=== PATIENT | male | born 1990 | race American Indian/Alaskan Native ===

== ENCOUNTER 2020-05-31 15:16 | Emergency (ER) | payer SELFPAY ==
[2020-05-31 16:31] VITALS: BP 134/94
--- NOTE | 2020-05-31 17:59 | Emergency Department Report ---
<TAMY MCADAMS - Last Filed: 05/31/20 17:54> ED Male HPI - General Chief complaint: Urogenital-Male Stated complaint: LUMP IN TESTICLE Time Seen by Provider: 05/31/20 17:49 Source: patient Mode of arrival: Ambulatory Limitations: No Limitations - History of Present Illness Initial comments: 21-year-old F [place] male presents emergency department complaining of a 2- month or so history of a testicular mass to the right testicle and some unknown etiology. Reports no hematuria no dysuria no fever, chills, sweats no possibility of an STD and the mass is not very painful. He discovered a mass while he was incarcerated and had an ultrasound done but was not told of the results of the ultrasound as he was released from assisted before obtaining them. Presents today seeking further evaluation guidance as to what to do with his testicular mass. He reports having no current past medical history or family history of any cancers issues Location: right testicle Radiation: none Consistency: constant Improves with: none Worsens with: none denies: swelling, urinary retention, blood in urine, nausea/vomiting, incontinence - Related Data Allergies Allergy/AdvReac Type Severity Reaction Status Date / Time ant bites Allergy Swelling Uncoded 05/31/20 16:28 ED Review of Systems Comment: All other systems reviewed and negative ED Past Medical Hx - Past Medical History Previous Medical History?: No - Surgical History Past Surgical History?: No - Social History Smoking Status: Current Every Day Smoker Substance Use Type: None ED Physical Exam - General Limitations: No Limitations General appearance: alert, in no apparent distress - Head Head exam: Present: atraumatic, normocephalic - Eye Eye exam: Present: normal appearance, PERRL, EOMI Pupils: Present: normal accommodation - ENT ENT exam: Present: mucous membranes moist - Neck Neck exam: Present: normal inspection - Respiratory Respiratory exam: Present: normal lung sounds bilaterally. Absent: respiratory distress - Cardiovascular Cardiovascular Exam: Present: regular rate, normal rhythm. Absent: systolic murmur, diastolic murmur, rubs, gallop - GI/Abdominal GI/Abdominal exam: Present: soft, normal bowel sounds - Rectal Rectal exam: Present: deferred - exam: Present: scrotal swelling (Testicular mass seen on the right testicle proximal aspect flexion conjunction no tenderness no discharge normal testicular lie), circumcision. Absent: vertical testicular lie - Extremities Exam Extremities exam: Present: normal inspection - Back Exam Back exam: Present: normal inspection - Neurological Exam Neurological exam: Present: alert, oriented X3 - Psychiatric Psychiatric exam: Present: normal affect, normal mood - Skin Skin exam: Present: warm, dry, intact, normal color. Absent: rash ED Disposition Clinical Impression: Testicular mass Disposition: TO HOME OR SELFCARE Is pt being admited?: No Does the pt Need Aspirin: No Condition: Stable Instructions: Testicular Self-examination (ED), Testicle Pain (ED) Referrals: [facility] [Provider Group] - 3-5 Days [facility] [Provider Group] - 3-5 Days Forms: AMA Form Print Language: MALAY <LIZ LIN - Last Filed: 05/31/20 21:38> ED Review of Systems ROS: Stated complaint: LUMP IN TESTICLE Other details as noted in HPI ED Course Vital Signs 05/31/20 16:28 Temperature 98.4 F Pulse Rate 62 Respiratory 18 Rate Blood Pressure 134/94 O2 Sat by Pulse 100 Oximetry ED Medical Decision Making - Radiology Data Radiology results: report reviewed, image reviewed Findings [facility] [address] [place] [address] Ultrasound Report Signed Patient: DIONI ALBERTO MR#: [id number] : 1990 Acct:[id number] Age/Sex: 29 / M ADM Date: 05/31/20 Loc: ED Attending Dr: Ordering Physician: DIOGO JEAN BAPTISTE Date of Service: 05/31/20 Procedure(s): US testicular doppler comp Accession Number(s): [id number] cc: DIOGO JEAN BAPTISTE ULTRASOUND SCROTUM INDICATION / CLINICAL INFORMATION: testicular mass to right. COMPARISON: None available. FINDINGS -- RIGHT TESTIS: Size = 3.8 x 2.6 x 3.8 cm. - Appearance: No significant abnormality. - Cyst or Mass: None. - Color Doppler Flow: No significant abnormality. EPIDIDYMIS: There are 2 simple cysts noted within the area of the epididymal head, both measuring approximately 7 mm in size. HYDROCELE: None. VARICOCELE: None demonstrated. FINDINGS -- LEFT TESTIS: Size = 3.8 x 2.6 x 3.8 cm. - Appearance: No significant abnormality. - Cyst or Mass: None. - Color Doppler Flow: No significant abnormality. EPIDIDYMIS: No significant abnormality. HYDROCELE: None. VARICOCELE: None demonstrated. ADDITIONAL FINDINGS: None. IMPRESSION: 1. There are 2 simple epididymal cysts noted of the epididymal head on the right both measuring approximately 7 mm in size. 2. Normal color flow noted to bilateral testicles. Signer Name: French Gilmore MD Signed: 05/31/2020 9:24 PM Workstation Name: [id number] Transcribed By: Dictated By: FRENCH GILMORE Electronically Authenticated By: FRENCH GILMORE Signed Date/Time: 05/31/202123 DD/ 19 TD/TT: - Medical Decision Making I assumed care of the patient from Mr. Christopher Kong PA-C at shift change at 1900 hrs. Briefly the patient had presented to the ED with right testicular mass for over 2 months with no pain. Lab test results were reviewed and are all nonactionable. Testicular ultrasound showed normal color flow bilaterally on the testicles and 2 simple epididymal cysts noted of the epididymal head on the right both measuring approximately 7 mm in size. Patient was discharged home and advised to follow-up with his primary care physician as needed. Patient was advised return to the ED immediately if symptoms get worse. - Differential Diagnosis Epididymitis; Orchitis; Testicular neoplasm; Torsion Critical care attestation.: If time is entered above; I have spent that time in minutes in the direct care of this critically ill patient, excluding procedure time. ED Disposition Time of Disposition: 21:36
--- NOTE | 2020-05-31 21:28 | Ultrasound Report ---
ULTRASOUND SCROTUM INDICATION / CLINICAL INFORMATION: testicular mass to right. COMPARISON: None available. FINDINGS -- RIGHT TESTIS: Size = 3.8 x 2.6 x 3.8 cm. - Appearance: No significant abnormality. - Cyst or Mass: None. - Color Doppler Flow: No significant abnormality. EPIDIDYMIS: There are 2 simple cysts noted within the area of the epididymal head, both measuring ap proximately 7 mm in size. HYDROCELE: None. VARICOCELE: None demonstrated. FINDINGS -- LEFT TESTIS: Size = 3.8 x 2.6 x 3.8 cm. - Appearance: No significant abnormality. - Cyst or Mass: None. - Color Doppler Flow: No significant abnormality. EPIDIDYMIS: No significant abnormality. HYDROCELE: None. VARICOCELE: None demonstrated. ADDITIONAL FINDINGS: None. IMPRESSION: 1. There are 2 simple epididymal cysts noted of the epididymal head on the right both measuring appro ximately 7 mm in size. 2. Normal color flow noted to bilateral testicles. Signer Name: French Tobin MD Signed: 05/31/2020 9:24 PM Workstation Name: [id number]
== END 2020-05-31 21:43 | disposition home or self-care (01) ==
LOC: ED 15:16
DX: N50.89 Other specified disorders of the male genital organs (principal); F17.200 Nicotine dependence, unspecified, uncomplicated; Z88.8 Allergy status to other drugs, medicaments and biological substances
CPT/HCPCS: 93975; 99283

== ENCOUNTER 2021-06-07 04:30 | Emergency (ER) | payer SELFPAY ==
[2021-06-07 04:44] VITALS: BP 147/94
--- NOTE | 2021-06-07 05:00 | Emergency Department Report ---
ED General Adult HPI - General Chief complaint: Skin/Abscess/Foreign Body Stated complaint: ABCESS ON LT SIDE CHEEK Source: patient Mode of arrival: Ambulatory Limitations: No Limitations - History of Present Illness Initial comments: Patient is a 30-year-old -[place] male with no past medical history presents to the ED with complaint of acute onset persistent painful swelling left cheek maculopapular rash for the last 2 days. Patient states that he noticed an ingrown hair on his left cheek 2 days ago and tried to pull it out and subsequently developed the swelling and pain. Patient denies fever, chills, nausea, vomiting, dizziness, syncope, no numbness and tingling of the face. MD Complaint: swollen painful rash on left cheek -: Sudden, days(s) (2) Location: face (left cheek) Radiation: non-radiation Severity scale (0 -10): 6 Quality: aching, sharp Consistency: constant Improves with: none Worsens with: none Associated Symptoms: denies other symptoms, rash (Swollen, painful maculopapular rash on left cheek). denies: confusion, chest pain, cough, diaphoresis, fever/chills, headaches, loss of appetite, malaise, nausea/vomiting, seizure, shortness of breath, syncope, weakness Treatments Prior to Arrival: none - Related Data Previous Rx's Medication Instructions Recorded Last Taken Type Ibuprofen [Motrin] 800 mg PO Q8HR PRN #30 tablet 06/07/21 Unknown Rx Sulfamethoxazole/Trimethoprim 1 each PO Q12H #20 tablet 06/07/21 Unknown Rx [Bactrim DS TAB] Allergies Allergy/AdvReac Type Severity Reaction Status Date / Time ant bites Allergy Swelling Uncoded 06/07/21 04:44 ED Review of Systems ROS: Stated complaint: ABCESS ON LT SIDE CHEEK Other details as noted in HPI Constitutional: denies: chills, fever Eyes: denies: eye pain, eye discharge, vision change ENT: other (swollen painful maculopapular rash on left cheek). denies: ear pain, throat pain Respiratory: denies: cough, shortness of breath, wheezing Cardiovascular: denies: chest pain, palpitations Endocrine: no symptoms reported Gastrointestinal: denies: abdominal pain, nausea, diarrhea Genitourinary: denies: urgency, dysuria Musculoskeletal: denies: back pain, joint swelling, arthralgia Skin: rash (Swollen, painful maculopapular rash on left cheek). denies: lesions Neurological: denies: headache, weakness, paresthesias Psychiatric: denies: anxiety, depression Hematological/Lymphatic: denies: easy bleeding, easy bruising ED Past Medical Hx - Past Medical History Previous Medical History?: No - Surgical History Past Surgical History?: No - Social History Smoking Status: Never Smoker - Medications Home Medications: Home Medications Medication Instructions Recorded Confirmed Last Taken Type Ibuprofen [Motrin] 800 mg PO Q8HR PRN #30 tablet 06/07/21 Unknown Rx Sulfamethoxazole/Trimethoprim 1 each PO Q12H #20 tablet 06/07/21 Unknown Rx [Bactrim DS TAB] ED Physical Exam - General Limitations: No Limitations General appearance: alert, in no apparent distress - Head Head exam: Present: atraumatic, normocephalic, normal inspection - Eye Eye exam: Present: normal appearance, PERRL, EOMI Pupils: Present: normal accommodation - ENT ENT exam: Present: normal orophraynx, mucous membranes moist, TM's normal bilaterally, normal external ear exam, other (Swollen, tender maculopapular rash on left cheek) - Neck Neck exam: Present: normal inspection, full ROM. Absent: tenderness - Respiratory Respiratory exam: Present: normal lung sounds bilaterally. Absent: respiratory distress, wheezes, rales, rhonchi, chest wall tenderness, accessory muscle use, decreased breath sounds, prolonged expiratory - Cardiovascular Cardiovascular Exam: Present: normal rhythm, bradycardia, normal heart sounds. Absent: systolic murmur, diastolic murmur, rubs, gallop - GI/Abdominal GI/Abdominal exam: Present: soft, normal bowel sounds. Absent: tenderness, guarding, rebound, hyperactive bowel sounds, hypoactive bowel sounds, organomegaly - Extremities Exam Extremities exam: Present: normal inspection, full ROM, normal capillary refill - Back Exam Back exam: Present: normal inspection, full ROM. Absent: tenderness, CVA tenderness (R), CVA tenderness (L), muscle spasm, paraspinal tenderness - Neurological Exam Neurological exam: Present: alert, oriented X3, CN II-XII intact, normal gait, reflexes normal - Psychiatric Psychiatric exam: Present: normal affect, normal mood - Skin Skin exam: Present: warm, dry, intact, normal color, rash (Swelling, tender, nonfluctuant maculopapular rash on left cheek). Absent: erythema ED Course Vital Signs 06/07/21 04:31 Temperature 98.2 F Pulse Rate 58 L Respiratory 18 Rate Blood Pressure 147/94 O2 Sat by Pulse 98 Oximetry ED Medical Decision Making - Medical Decision Making This is a 30-year-old -[place] male with no past medical history presents to the ED with complaint of acute onset persistent painful swelling left cheek maculopapular rash for the last 2 days. Patient states that he noticed an ingrown hair on his left cheek 2 days ago and tried to pull it out and subsequently developed the swelling and pain. In the ED, patient is alert and oriented x3 and is not in any distress. Patient is hemodynamically stable. Patient was discharged home on antibiotics and pain medication based on the history and physical exam findings. Patient was advised to return to the ED i mmediately if symptoms get worse, otherwise follow-up with his primary care physician in 7 to 10 days for reevaluation - Differential Diagnosis Cellulitis; folliculitis; cutaneous abscess Critical care attestation.: If time is entered above; I have spent that time in minutes in the direct care of this critically ill patient, excluding procedure time. ED Disposition Clinical Impression: Acute folliculitis, Cellulitis and abscess of face Disposition: 01 HOME / SELF CARE / HOMELESS Is pt being admited?: No Does the pt Need Aspirin: No Condition: Stable Instructions: Skin Abscess, [id number], Cellulitis, Adult, [id number] Additional Instructions: Take medication with food, drink plenty of fluids and follow-up with your primary care physician in 7 to 10 days for reevaluation. Return to the ED immediately if symptoms get worse. Prescriptions: Sulfamethoxazole/Trimethoprim [Bactrim DS TAB] 1 each PO Q12H #20 tablet Ibuprofen [Motrin] 800 mg PO Q8HR PRN #30 tablet PRN Reason: Pain , Severe (7-10) Referrals: [facility] [Provider Group] - 7-10 days Forms: Work/School Release Form(ED) Time of Disposition: 05:01 Print Language: [place]
== END 2021-06-07 05:15 | disposition home or self-care (01) ==
LOC: ED 04:30
DX: L02.01 Cutaneous abscess of face (principal); L73.9 Follicular disorder, unspecified; L03.211 Cellulitis of face; Z91.048 Other nonmedicinal substance allergy status; Z91.09 Other allergy status, other than to drugs and biological substances; Z79.899 Other long term (current) drug therapy
CPT/HCPCS: 99282